=== PATIENT | female | born 1965 | race American Indian/Alaskan Native ===

== ENCOUNTER 2019-09-01 09:37 | Outpatient (CLI) | payer OTHER ==
--- NOTE | 2019-09-01 11:43 | Mammography Report ---
DIGITAL DIAGNOSTIC MAMMOGRAM WITH CAD, 09/01/2019 INDICATION: -Post clip placemenrt Lt. Immediately status post left stereotactic biopsy for calcifica tions. TECHNIQUE: Digital left mammographic imaging was performed. This examination was interpreted with the benefit of Computer-aided Detection analysis. COMPARISON: 08/25/2019 FINDINGS: Breast Density: The breast is heterogeneously dense, which may obscure small masses. Most of the upper inner calcifications have been removed with concordant clip placement. IMPRESSION: Successful stereotactic biopsy with concordant clip placement. Follow up recommendation: No recall. Post biopsy imaging. A "normal" or negative report should not discourage follow up or biopsy of a clinically significant f inding. A written summary of these findings will be mailed to the patient. The patient will be entered into a mammography reporting system which will generate a reminder letter for the patient's next appointmen t at the appropriate interval. According to the [employer], yearly mammograms are recommended starting at age 40 and continuing as long as a woman is in good health. Breast MRI is recommended for women with an denys roximately 20-25% or greater lifetime risk of breast cancer, including women with a strong family his tory of breast or ovarian cancer and women who have been treated for Hodgkin's disease. Signer Name: Brett Abreu MD Signed: 09/01/2019 11:39 AM Workstation Name: [id number]
--- NOTE | 2019-09-01 13:18 | Mammography Report ---
STEREOTACTIC NEEDLE BIOPSY WITH CLIP PLACEMENT LEFT BREAST INDICATION: LEFT BREAST CALCIFICATIONS. COMPARISON: 08/25/2019 FINDINGS: The patient was placed prone on the stereotactic biopsy table. A timeout was called and the skin was cleansed with betadine. Using stereotactic guidance, sterile technique and 1% lidocaine for skin anesthesia and 2% lidocaine with epinephrine for deep anesthesia, 8-gauge Mammotome vacuum-assisted biopsy was performed from a C C from above approach. Samples were obtained around the clock face and labor representative calcifications were identified on a specimen radiograph. A localizer clip was placed at the biopsy site and the prob e was removed. Hemostasis was achieved with pressure to the site. A sterile dressing was applied. A post procedure mammogram demonstrated removal of most if not all of the calcifications and concorda nt location of the biopsy clip. The patient tolerated the procedure well and there were no apparent c omplications. She left the department in good condition with a cold pack applied to the biopsy site a nd she was given instructions for wound care and follow-up. IMPRESSION: 1. Successful uncomplicated stereotactic biopsy left breast. Signer Name: Brett Abreu MD Signed: 09/01/2019 1:13 PM Workstation Name: [id number]
== END 2019-09-01 09:38 | disposition home or self-care (01) ==
LOC: SPVWC 09:37
PROVIDERS: ATTEND Surgery
DX: R92.1 Mammographic calcification found on diagnostic imaging of breast (principal)
CPT/HCPCS: 19081; 77065; 88305; A4648; 88341; 88342

== ENCOUNTER 2019-12-08 07:03 | Day surgery (SDC) | payer OTHER ==
[~2019-12-08 07:03] MED LIST: ceFAZolin/Water 2 GM/20 ML 2 GM/20 ML SYRINGE IV NR
[2019-12-08] MEDS ORDERED: LIDOCAINE (1%) 10 MG/1 ML VIAL 20 ML MDV ONE (08:25)
[2019-12-08] MEDS ORDERED: LIDOCAINE (1%) 10 MG/1 ML VIAL 20 ML MDV INFILTRATI ONE (09:10)
[2019-12-08] MEDS ORDERED: ONDANSETRON 4 MG/2 ML INJ IV PRN (09:22)
[2019-12-08] MEDS ORDERED: HYDROmorphone 1 MG/1 ML INJ IV PRN ×2 (09:22)
[2019-12-08] MEDS ORDERED: fentaNYL 100 MCG/2 ML INJ IV NR (09:22)
[2019-12-08] MEDS ORDERED: MAGNESIUM OXIDE 400 MG TAB PO NR (09:23)
[2019-12-08] MEDS ORDERED: ACETAMINOPHEN 500 MG TAB PO NR (09:23)
--- NOTE | 2019-12-08 09:24 | Anesthesia Day of Surgery ---
Anesthesia Day of Surgery - Day of Surgery Patient Examined: Yes Patient H&P Reviewed: Yes Patient is NPO: Yes Beta Blockers: Yes
--- NOTE | 2019-12-08 09:26 | Anesthesia Consultation ---
Anesthesia Consult and Med Hx Date of service: 12/08/19 - Airway Anesthetic Teeth Evaluation: Good ROM Head & Neck: Adequate Mental/Hyoid Distance: Adequate Mallampati Class: Class III Intubation Access Assessment: Probably Good - Pre-Operative Health Status ASA Pre-Surgery Classification: ASA3 Proposed Anesthetic Plan: General Nerve Block: ES/PECS - Pulmonary Hx Smoking: Yes (FORMER; QUIT 1996) Hx Respiratory Symptoms: No (+2FS) - Cardiovascular System Hx Hypertension: Yes (2016) Hx Coronary Artery Disease: No (Pt reports negative ETT/ECHO last year) - Central Nervous System Hx Psychiatric Problems: Yes (Anxiety) - Hematic Hx Sickle Cell Disease: No - Other Systems Hx Alcohol Use: Yes Hx Substance Use: No Hx Cancer: Yes Hx Obesity: Yes (BMI 44)
[2019-12-08] MEDS ORDERED: fentaNYL 100 MCG/2 ML INJ ONE (09:30)
[2019-12-08] MEDS ORDERED: BUPIVACAINE-EPINEPHRINE/PF 0.25%-1:200,000 (30 ML) VIAL INFILTRATI ONE ×2 (09:32→10:23)
--- NOTE | 2019-12-08 09:53 | Mammography Report ---
LEFT BREAST NEEDLE LOCALIZATION USING X-RAY GUIDANCE The procedure was explained to the patient and informed consent obtained. PROCEDURE: Using 3 mL of 1% buffered lidocaine, a 25 gauge needle and x-ray guidance, the previously placed biopsy markers/lesion was bracketed with standard needle/wire technique. A 5 cm localization needle was placed just anterior to the clip at 12:00. A 7 cm localization needle was placed just post erior to the clip at 11:00. CC view was utilized from a superior approach. There were no immediate co mplications. INTERPRETATION: 2 images made during the procedure demonstrate the needle to be properly positioned. IMPRESSION: Successful breast lesion localization /bracketing as described above. Thank you for allowing us to participate in the care of your patient. Signer Name: Arthur Lomas Jr, MD Signed: 12/08/2019 9:48 AM Workstation Name: [id number]
[2019-12-08] MEDS: MIDAZOLAM 2 MG/2 ML INJ IV NR ×2 (09:58→10:20)
[2019-12-08] MEDS ORDERED: GABAPENTIN 300 MG CAP PO NR (10:00)
[2019-12-08] MEDS ORDERED: CELECOXIB 200 MG CAP PO NR (10:00)
[2019-12-08] MEDS ORDERED: LACTATED RINGERS 1,000 ML IV SCH (10:00)
[2019-12-08] MEDS ORDERED: SODIUM CHLORIDE P/F VIAL 10 ML 10 ML ONE (10:40)
[2019-12-08] MEDS ORDERED: METHYLENE BLUE 50 MG/10 ML AMP ONE (10:40)
[2019-12-08] MEDS ORDERED: propofoL 200 MG/20 ML VIAL IV ONE (10:45)
[2019-12-08] MEDS ORDERED: HYDROmorphone 1 MG/1 ML INJ ONE (10:45)
[2019-12-08] MEDS ORDERED: SODIUM CHLORIDE 0.9% P/F 10 ML VIAL INFILTRATI ONE (11:32)
[2019-12-08] MEDS ORDERED: WATER FOR IRRIG STERILE 1,500 ML BOTTLE IR ONE (11:34)
[2019-12-08] MEDS ORDERED: METHYLENE BLUE 50 MG/10 ML AMP IV ONE (11:34)
[2019-12-08] MEDS ORDERED: LIDOCAINE MPF (2%) 20 MG/1 ML VIAL 5 ML ONE ×2 (12:51→12:52)
[2019-12-08] MEDS ORDERED: ONDANSETRON 4 MG/2 ML INJ ONE (12:52)
[2019-12-08] MEDS ORDERED: KETOROLAC 30 MG/1 ML INJ ONE (12:52)
--- NOTE | 2019-12-08 13:48 | Operative Report ---
Operative Report Operative Report: Operative Report: December 08, 2019 Preoperative diagnosis: Left breast cancer of the upper inner/outer quadrant Postoperative diagnosis: Same Procedure: Left needle localization partial mastectomy of the upper outer quadrant and SLNB Surgeon: Katie Randle MD Anesthesia: General Findings: Left wires and clips present within radiograph specimen; x 2 SLNs Complications: None EBL: Minimaln (less than 50 cc) Disposition: PACU in good condition Indications for operative procedure: This is a 54 year old lady with newly diagnosed left breast cancer of the upper outer/inner quadrant, Stage I [id number] ER positive. Recommendations are to proceed with breast conservation. Radiology bracketed three areas of cancer of DCIS adn IDCA breast cancer. She understands the role of adjuvant radiation therapy and Oncotype DX will be obtained by medical oncology. She wished to proceed with the above procedure. Procedure in detail: The patient was taken to radiology for wire placement for localization known area of cancer. Anesthesia placed left pectoral block. Patient was then taken to the operating room. Gen. anesthesia was administered. The left nipple was injected with radioisotope and 1 cc of methylene blue dye. Left breast and axilla were prepped and draped in the normal sterile operative fashion. The wires were identified. Timeout was performed. Gamma probe was inserted into the axilla. The area of hot spot was identified. A left axillary incision was made with a 15 blade knife with dissection taken down to the subcutaneous tissues. The axillary fascia was opened with the Bovie cautery. 2 SLNs were identified. All remaining counts were less than 10% of the highest count; lymph nodes with blue dye present. Lymph node was sent to pathology for permanent processing. Hemostasis was obtained in the left axillary cavity. Axillary cavity was appropriately irrigated and suctioned. Hemostasis was noted. Axillary fascia was approximated and closed using interrupted 3-0 Vicryl and the skin brought together and closed using a running 4-0 Monocryl followed by skin affix. Attention was then taken towards the left breast. An upper inner quadrant breast incision was made around 11/12:00 position with a 15 blade knife and dissection taken down to subcutaneous tissues. First began raising of the superior flap with removal of the wires from the skin with dissection taken down to the pectoralis muscle, followed by raising of the inferior flap, medial flap and lateral flap with all flaps taken down to the pectoralis muscle. The breast area of concern was appropriately removed posteriorly from the pectoralis muscle with the aid of the Bovie cautery. The wires were not encountered. Specimen was marked and then sent to pathology and radiology; radiograph specimen with wires and clips (x3) present. Breast cavity was irrigated and hemostasis was obtained. The posterior deep breast tissues were approximated and closed using interrupted 3-0 Vicryl. The subcutaneous tissues were approximated and closed using interrupted 3-0 Vicryl followed by closing of the skin with a running 4-0 Monocryl and skin affix. The patient tolerated surgery very well and she was awaken from anesthesia without any complication and transported to PACU in good condition.
--- NOTE | 2019-12-08 13:51 | Short Stay Summary ---
Short Stay Documentation Date of service: 12/08/19 - History H&P: obtained from office - Allergies and Medications Current Medications: Allergies erythromycin base Allergy (Verified 11/29/19 11:03) Nausea Home Medications Medication Instructions Recorded Confirmed Last Taken Type ALPRAZolam [Xanax TAB] 0.5 mg PO BID PRN 11/29/19 11/29/19 Unknown History Ibuprofen [Motrin] 800 mg PO Q8HR PRN 11/29/19 11/29/19 Unknown History Metoprolol [Lopressor TAB] 50 mg PO DAILY 11/29/19 11/29/19 Unknown History oxyCODONE /ACETAMINOPHEN [Percocet 1 tab PO Q6HR PRN #20 tablet 12/08/19 Unknown Rx 5/325] Active Medications Acetaminophen (Tylenol) 1,000 mg PO ONCE NR Stop: 12/08/19 16:00 Last Admin: 12/08/19 09:45 Dose: 1,000 mg Documented by: Celecoxib (Celebrex) 400 mg PO PREOP NR Stop: 12/08/19 16:00 Last Admin: 12/08/19 09:45 Dose: 400 mg Documented by: Fentanyl (Sublimaze) 100 mcg IV ONCE NR Stop: 12/08/19 16:00 Last Admin: 12/08/19 09:58 Dose: 100 mcg Documented by: Gabapentin (Gabapentin) 300 mg PO PREOP NR Stop: 12/08/19 16:00 Last Admin: 12/08/19 09:45 Dose: 300 mg Documented by: Hydromorphone HCl (Dilaudid) 0.25 mg IV Q10MIN PRN PRN Reason: Pain, Moderate (4-6) Stop: 12/08/19 23:00 Hydromorphone HCl (Dilaudid) 0.5 mg IV Q10MIN PRN PRN Reason: Pain , Severe (7-10) Stop: 12/08/19 23:00 Cefazolin Sodium (Ancef/Sterile Water 2 Gm/20 Ml) 2 gm in 20 mls @ 80 mls/hr IV PREOP NR; Protocol Stop: 12/08/19 18:00 Lactated Ringer's (Lactated Ringers) 1,000 mls @ 125 mls/hr IV DIRECT SWATHI Last Admin: 12/08/19 09:45 Dose: 125 mls/hr Documented by: Magnesium Oxide (Mag-Ox) 400 mg PO ONCE NR Stop: 12/08/19 16:00 Last Admin: 12/08/19 09:45 Dose: 400 mg Documented by: Midazolam HCl (Versed) 2 mg IV PREOP NR Stop: 12/08/19 23:59 Last Admin: 12/08/19 10:20 Dose: 2 mg Documented by: Ondansetron HCl (Zofran) 4 mg IV ONCE PRN PRN Reason: Nausea And Vomiting Stop: 12/08/19 16:00 - Brief post op/procedure progress note Date of procedure: 12/08/19 Pre-op diagnosis: left breast cancer upper inner/outer quadrant Post-op diagnosis: same Procedure: left needle localization partial mastectomy with SLNB Anesthesia: GETA Findings: left wires and clips present Surgeon: MILTON GUPTA Estimated blood loss: minimal Pathology: list (partial mastectomy; x2 slns) Specimen disposition: to lab Condition: stable - Disposition Condition at discharge: Good Disposition: DC-01 TO HOME OR SELFCARE Short Stay Discharge Plan Activity: other (no heavy lifting) Diet: regular Wound: keep clean and dry (wear breast binder; no baths, pools or lakes; may shower in 48 hours; do not rub or scrub incision) Follow up with: MILTON GUPTA MD [Staff Physician] - 7 Days Prescriptions: oxyCODONE /ACETAMINOPHEN [Percocet 5/325] 1 tab PO Q6HR PRN #20 tablet PRN Reason: Pain
--- NOTE | 2019-12-08 14:34 | Post Anesthesia Evaluation ---
- Post Anesthesia Evaluation Patient Participated: Yes Airway Patent: Yes Stable Respiratory Function: Yes Nausea/Vomiting: No Temp > 96.8F: Yes Pain Manageable: Yes Adequeate Hydration: Yes Anesthesia Complications: No Block Receding Appropriately: Yes Patient on Ventilator: No
--- NOTE | 2019-12-08 16:07 | Mammography Report ---
MAMMOGRAPHY SURGICAL SPECIMEN HISTORY: Excisional biopsy and left breast COMPARISON: The localization performed earlier today. FINDINGS: The surgical specimen contains the 2 previously placed localization needles, pleomorphic calcificatio ns and 3 surgical clips. This corresponds to the abnormality seen on mammography. IMPRESSION: Successful excisional biopsy. Signer Name: Arthur Lomas Jr, MD Signed: 12/08/2019 4:02 PM Workstation Name: [id number]
[2019-12-10 18:26] VITALS: BP 132/72
== END 2019-12-08 07:04 | disposition home or self-care (01) ==
LOC: OR 07:03
PROVIDERS: ATTEND Surgery
DX: C50.212 Malignant neoplasm of upper-inner quadrant of left female breast (principal); I89.8 Other specified noninfective disorders of lymphatic vessels and lymph nodes; C50.412 Malignant neoplasm of upper-outer quadrant of left female breast; Z20.828 Contact with and (suspected) exposure to other viral communicable diseases; I10 Essential (primary) hypertension; E66.9 Obesity, unspecified; F41.9 Anxiety disorder, unspecified; Z17.0 Estrogen receptor positive status [ER+]; Z72.89 Other problems related to lifestyle; Z79.899 Other long term (current) drug therapy; Z87.891 Personal history of nicotine dependence; Z98.890 Other specified postprocedural states; Z68.41 Body mass index [BMI] 40.0-44.9, adult; Z88.8 Allergy status to other drugs, medicaments and biological substances
CPT/HCPCS: 19281; 19301; 38525; 38792; 64450; 76098; 78800; 81025; 88307; 88342; A9541; J0690; J1170; J1885; J2250; J2405; J2704; J3010; J7120; Q9968; U0003; 88333

== ENCOUNTER 2020-06-20 14:30 | Outpatient (CLI) | payer OTHER ==
--- NOTE | 2020-06-20 15:19 | Mammography Report ---
BILATERAL DIGITAL SCREENING MAMMOGRAM WITH CAD HISTORY: Personal history of left breast cancer, status post lumpectomy. TECHNIQUE: Routine digital mammographic imaging performed. This examination was interpreted with gloria daniels benefit of Computer-aided Detection analysis. COMPARISON: 11/25/2019, 08/25/2019, 08/17/2019, 07/09/2018, 07/09/2017. FINDINGS: Breast Density: heterogeneously dense breast parenchymal pattern which somewhat lessens the sensitivi ty of the evaluation. Digital CC and MLO views demonstrate new lumpectomy change in the left superior posterior breast with associated seroma. This will serve as a new baseline appearance for the left breast. The previously noted calcifications have been removed. No suspicious findings within either breast. IMPRESSION: No mammographic evidence of malignancy. If the clinical examination remains stable, recommend bilate ral mammogram in approximately one year. BIRADS 2: Benign Finding(s). FURTHER INFORMATION: According to the [employer], yearly mammograms are recommend ed starting at age 40 and continuing as long as a woman is in good health. Clinical Breast Exams shou ld be part of a periodic health exam-about every 3 years for women in their 20s and 30s and every yea r for women 40 and over. Breast self exam is an option for women starting in their 20s. Any breast ch lilia noted on a breast self exam should be reported promptly to the patient's healthcare provider. [place] east MRI is recommended for women with an approximately 20-25% or greater lifetime risk of breast can cer, including women with a strong family history of breast or ovarian cancer and women who have been treated for Hodgkin's disease. A negative Mammography report should not discourage follow up or biopsy of a clinically significant f inding and/or abnormality. Dense breast tissue may obscure small neoplasms. The patient will be entered into a reminder system with a target due date for the next screening mamm ogram. Signer Name: Dale Lou MD Signed: 06/20/2020 3:15 PM Workstation Name: [id number]
== END 2020-06-20 14:31 | disposition home or self-care (01) ==
LOC: SPVWC 14:30
PROVIDERS: ATTEND Surgery
DX: R92.8 Other abnormal and inconclusive findings on diagnostic imaging of breast (principal); Z85.3 Personal history of malignant neoplasm of breast
CPT/HCPCS: 77066

== ENCOUNTER 2021-05-08 15:40 | Outpatient (CLI) | payer OTHER | END 2021-05-08 15:41 | disposition home or self-care (01) | LOC: SPVWC 15:40 | PROVIDERS: ATTEND Surgery | DX: Z12.31 Encounter for screening mammogram for malignant neoplasm of breast (principal) | CPT/HCPCS: 77067 ==